=== PATIENT | male | born 1940 | race Caucasian/White ===

== ENCOUNTER 2019-03-04 06:25 | Observation (INO) | payer MEDICARE ==
--- NOTE | 2019-02-26 18:20 | HP ---
CC: Dr. Noel; Dr. Naik * ADMITTING HISTORY AND PHYSICAL: DATE OF ADMISSION/OPERATION: 03/04/19 ADMITTING DIAGNOSIS: Benign prostatic hypertrophy. PLANNED PROCEDURE: Transurethral resection of prostate. SURGEON: Dr. Jernigan. ADMITTING HISTORY AND PHYSICAL: Gareth Burdick is a 78-year-old gentleman with longstanding symptoms of benign prostatic hypertrophy. I had originally evaluated him in 2007 and he has been on medical therapy including most recently Cardura as well as Proscar; and, in spite of that, continues to have partial urinary retention and bothersome urinary symptoms and is now being brought in for a transurethral resection of prostate. PAST MEDICAL HISTORY: Significant for: 1. BPH. 2. History of atrial fibrillation (required 2 RF ablations, one in 2014 and one in 2018 and has been in sinus rhythm since the second one). 3. Glaucoma. PAST SURGICAL HISTORY: Significant for bilateral inguinal hernia repair and tonsillectomy and radiofrequency ablation. MEDICATIONS ON ADMISSION: 1. Proscar 5 mg daily. 2. Cardura 4 mg daily. 3. Eye drops for glaucoma. He had been on Xarelto up until recently, but after his most recent discussion with Dr. Naik, he stopped the Xarelto. ALLERGIES: No known drug allergies. FAMILY HISTORY: Negative for prostate or bladder cancer. SOCIAL HISTORY: Smoking history: He is a former smoker with a 15-pack year smoking history, who quit about 40 years ago. REVIEW OF SYSTEMS: He is otherwise in excellent health. There is no history of diabetes mellitus or any other major systemic illness. PHYSICAL EXAMINATION GENERAL: Reveals a pleasant elderly gentleman. VITAL SIGNS: Blood pressure is 110/70, pulse 80 per minute and regular, temperature 96.3, oxygen saturation 98% on room air. LUNGS: Clear bilaterally. CARDIOVASCULAR: Regular rate and rhythm. S1, S2. ABDOMEN: Soft without masses. DIAGNOSTIC STUDIES/LAB DATA: Urinalysis is negative. IMPRESSION: A 78-year-old gentleman with longstanding history of symptoms and partial retention secondary to prostate enlargement. PLANNED PROCEDURE: Transurethral resection of prostate. [id number] #: [id number] MTDD
[~2019-03-04 06:25] MED LIST: Buffered Lidocaine 1% SYRIN* 1 ML/SYRINGE INTRADERM ONE; Famotidine IV* 10 MG/ML 2 ML (20 mg) IV ONE
[2019-03-04] MEDS ORDERED: Famotidine IV* 10 MG/ML 2 ML (20 mg) ONE (07:00)
[2019-03-04] MEDS ORDERED: ceFAZolin 2 GM in NS PREMIX(*) 0 GM/0 ML BAG IVPB ONE (07:00)
[2019-03-04] MEDS: Lactated Ringers 1000 ML Bag* 1,000 ML IV SCH ×4 (07:36→21:00)
[2019-03-04] MEDS ORDERED: Lidocaine 2% PF * 5 ML VIAL ONE (08:14)
[2019-03-04] MEDS ORDERED: fentaNYL* 50 MCG/ML 2 ML VIAL (100 MCG VIAL) ONE (08:14)
[2019-03-04] MEDS ORDERED: Ondansetron INJ* 2 MG/ML VIAL ONE (08:14)
[2019-03-04] MEDS ORDERED: Propofol* 10 MG/ML 20 ML BTL ONE ×2 (08:14→10:43)
[2019-03-04] MEDS ORDERED: Dexamethasone IV* 4 MG/ML 1 ML (4 MG) ONE (08:14)
[2019-03-04] MEDS ORDERED: Midazolam* 1 MG/ML 5 ML VIAL (5 MG) ONE (08:14)
[2019-03-04] MEDS ORDERED: cefTRIAXone(*) 2 GM ADDV.VIAL IVPB ONE (09:24)
[2019-03-04] MEDS ORDERED: Furosemide IV* 10 MG/ML 2 ML VIAL (20 MG) ONE (10:17)
[2019-03-04] MEDS ORDERED: Naloxone* 0.4 MG/ML 1 ML VIAL IV PRN (11:58)
[2019-03-04] MEDS ORDERED: fentaNYL* 50 MCG/ML 2 ML VIAL (100 MCG VIAL) IV PRN (11:58)
[2019-03-04] MEDS ORDERED: Ondansetron INJ* 2 MG/ML VIAL IV PRN (11:58)
[2019-03-04] MEDS ORDERED: Cetirizine* 10 MG TAB PO PRN (14:06)
[2019-03-04] MEDS ORDERED: Folic Acid TAB* 1 MG PO SCH (18:00)
[2019-03-04] MEDS ORDERED: Latanoprost 0.005%* 2.5 ml BTL BOTH EYES SCH (18:00)
[2019-03-04] MEDS: Acetaminophen TAB* 325 MG PO PRN (20:38)
[2019-03-04] MEDS: Docusate CAP* 100 MG PO SCH (20:39)
[2019-03-04] MEDS ORDERED: Vitamin B Complex TAB PO SCH (21:00)
[2019-03-04] MEDS ORDERED: Ascorbic Acid TAB* 500 MG PO SCH (21:00)
[2019-03-04] MEDS ORDERED: Magnesium Oxide TAB* 400 MG PO SCH (21:00)
[2019-03-04] MEDS ORDERED: Vitamin THERAPEUTIC TAB PO SCH (21:00)
--- NOTE | 2019-03-04 23:24 | OP ---
CC: Lv Noel MD * DATE OF OPERATION: 03/04/19 - ROOM #348 DATE OF : 44 SURGEON: Ran Jernigan MD ANESTHESIOLOGIST: Dr. Chaidez ANESTHESIA: Spinal PRE-OP DIAGNOSES: 1. Benign prostatic hypertrophy 2. Partial urinary retention. POST-OP DIAGNOSES: 1. Benign prostatic hypertrophy 2. Partial urinary retention. OPERATIVE PROCEDURES: 1. Transurethral resection of prostate 2. Transurethral incision of bladder neck. COMPLICATIONS: None. BLOOD LOSS: 50 cc. SPECIMEN: Prostate chips. CATHETER: 24-Polish Levin. OPERATIVE FINDINGS: 1. Moderately large obstructing prostate. 2. Simple left ureterocele. POSTOPERATIVE CONDITION: Stable. INDICATIONS: Gareth Burdick is a 78-year-old gentleman with longstanding voiding symptoms secondary to prostate enlargement. He desires and is now being brought in for transurethral resection of prostate. DESCRIPTION OF PROCEDURE: After induction of spinal anesthesia, the patient was placed in dorsal lithotomy position. Sequential compression devices were in place and functioning. Initial cystoscopy revealed a normal-appearing urethra , a moderately enlarged obstructing prostate and a simple left ureterocele was noted. There was no evidence of any suspicious bladder lesion. Transurethral resection of prostate was carried out from the bladder neck down to the veru. The floor of the prostate and the median lobe was first resected followed by the lateral lobe tissue and an anterior tissue. At no point was the resection carried distal to the veru in an effort to avoid any potential injury to the sphincter. Using a right angle knife electrode, bladder neck incision was carried out at 5 , 7 and 12 o'clock position in an effort to minimize any potential chances of postoperative bladder neck contracture. The resected tissue was removed from the bladder using the Oneyda evacuator. Hemostasis appeared satisfactory at the end of the procedure and a 24-Polish Levin was placed without difficulty. The patient tolerated the procedure satisfactorily and was transferred back to the recovery area in stable condition. [id number]/[facility] #: [id number] [facility]
[2019-03-05] MEDS: Lactated Ringers 1000 ML Bag* 1,000 ML IV SCH (03:19)
[2019-03-05] MEDS: Acetaminophen TAB* 325 MG PO PRN (06:45)
[2019-03-05 07:30] VITALS: BP 131/75
[2019-03-05] MEDS ORDERED: cefTRIAXone(*) 2 GM in NS 0.9% 100 ML* 100 ML IVPB ONE (08:00)
[2019-03-05 08:01] LABS: Calcium 8.4 mg/dL (8.6-10.3); EGFR African American 195.6 (>60); EGFR Non-African American 161.7 (>60); Potassium 3.8 mmol/L (3.5-5.0)
[2019-03-05] MEDS ORDERED: Betaxolol 0.5 %* OPHTH.SOLN 5 ML BOTH EYES SCH (09:00)
[2019-03-05] MEDS ORDERED: Influenza VAC *QUAD* 2019-20* 0.5 ML SYRINGE IM ONE (09:00)
[2019-03-05] MEDS: Docusate CAP* 100 MG PO SCH (10:04)
--- NOTE | 2019-03-06 00:23 | DS ---
DISCHARGE SUMMARY: DATE OF ADMISSION: 03/04/19 DATE OF DISCHARGE: 03/05/19 ADMITTING DIAGNOSES: 1. Benign prostatic hypertrophy. 2. Partial urinary retention. SURGICAL PROCEDURES ON THIS ADMISSION: On 03/04/19, transurethral resection of prostate. HISTORY: Gareth Burdick is a 78-year-old gentleman with longstanding history of voiding symptoms secondary to prostate enlargement. For details, please see admitting history and physical. HOSPITAL COURSE: On 03/04/19, Mr. Burdick underwent transurethral resection of prostate under spinal anesthesia. Surgery was smooth and uneventful. He was observed overnight, and I checked him in the evening on 03/04/19, and then again in the morning on 03/05/19. His Levin catheter was draining well, and he was discharged home in stable condition for followup as per outpatient protocol. [id number]/[facility] #: [id number] MTDD
== END 2019-03-05 11:35 | disposition home or self-care (01) ==
LOC: OR 06:25 → SSU 13:59 → INTOOBSV 13:59
PROVIDERS: ADMIT Urology; ATTEND Urology
DX: N40.1 Benign prostatic hyperplasia with lower urinary tract symptoms (principal); R33.8 Other retention of urine; I48.91 Unspecified atrial fibrillation; H40.9 Unspecified glaucoma; Z87.891 Personal history of nicotine dependence
CPT/HCPCS: 36415; 80048; 88305; 90471; 90686; A9270-GY; G0008; G0378; J0690; J0696; J1100; J1940; J2250; J2405; J2704; J3010

== ENCOUNTER 2019-05-08 21:56 | Inpatient (IN) | payer MEDICARE ==
--- NOTE | 2019-05-08 22:23 | ED ---
Altered Mental Status - HPI Summary HPI Summary: Pt is a 78 y/o M presenting to the ED brought in by EMS for a possible head injury. LEVEL 5 CAVEAT: Pts full hx and physical is limited d/t AMS. Per pts daughter, pts called her at 2100 saying that she found him outside on the ground, looking like he had fallen. He did not remember who his was, where he was, or who anyone else was. Provider saw pt at 22:10. He is on Aspirin, no other blood thinners. Per pt's , he sees Dr. Naik. He recently had a procedure for which he was taken off of his Xarelto, but his is unsure if he began taking it again or not. - History Of Current Complaint Chief Complaint: EDHeadInjury Stated Complaint: AMS PER EMS Time Seen by Provider: 05/08/19 22:08 Hx Obtained From: Family/Professor Of Rhetoric - dtr Onset/Duration: Unknown, Still Present Timing: Intermittent, Lasting Hours Severity Initially: Moderate Severity Currently: Moderate Character: Confusion Aggravating Factor(s): Unknown Alleviating Factor(s): Nothing Associated Signs And Symptoms: Positive: Recent Trauma - Allergies/Home Medications Allergies/Adverse Reactions: Allergies Allergy/AdvReac Type Severity Reaction Status Date / Time No Known Allergies Allergy Verified 03/04/19 07:18 Home Medications: Home Medications Aspirin EC TAB* [Ecotrin EC Low Dose 81 MG*] 81 mg PO QAM 05/08/19 [History Confirmed 05/08/19] PMH/Surg Hx/FS Hx/Imm Hx Previously Healthy: No Endocrine/Hematology History: Reports: Hx Anticoagulant Therapy - aspirin, xarelto, unk if on xarelto currently Denies: Hx Diabetes Cardiovascular History: Reports: Hx Atrial Fibrillation Denies: Hx Hypertension, Hx Pacemaker/ICD Respiratory History: Reports: Hx Asthma - A TEENAGER, Hx Sleep Apnea - CPAP user, compliance issues History: Reports: Other Problems/Disorders - ENLARGED PROSTATE Denies: Hx Dialysis, Hx Renal Disease Musculoskeletal History: Reports: Hx Arthritis - BILATERAL HANDS MORE ON RIGHT Sensory History: Reports: Hx Cataracts, Hx Contacts or Glasses - READERS, Hx Glaucoma Denies: Hx Hearing Aid Opthamlomology History: Reports: Hx Cataracts, Hx Contacts or Glasses - READERS , Hx Glaucoma Psychiatric History: Denies: Hx Panic Disorder - Surgical History Surgery Procedure, Year, and Place: HERNIA, , CATARACTS,. 2 ABLATIONS Hx Anesthesia Reactions: Yes - WITH ABALTION DIFFICULT TIME COMING OUT OF ANESTHESIA . Infectious Disease History: No Infectious Disease History: Denies: Traveled Outside the [place] in Last 30 Days - Family History Known Family History: Positive: Other Family History: LEVEL 5 CAVEAT: Pts full hx and physical is limited d/t AMS. - Social History Alcohol Use: Occasionally Substance Use Type: Reports: None Smoking Status (MU): Former Smoker Have You Smoked in the Last Year: No Review of Systems - ROS Summary Review of Systems Summary: Home Medications Medication Instructions Recorded Confirmed Type Aspirin [Aspirin 81] 81 mg PO QPM 07/30/13 03/04/19 History Betaxolol 0.5 %* [Betoptic 0.5%*] 1 drop BOTH EYES QAM 07/30/13 03/04/19 History Doxazosin Mesylate [Cardura] 4 tab PO QPM 07/30/13 03/04/19 History Latanoprost 0.005%* [Xalatan 1 drop BOTH EYES QPM 08/30/16 03/04/19 History 0.005%*] Ascorbic Acid [Vitamin C] 1,000 mg PO QPM 02/27/19 03/04/19 History Fexofenadine (NF) [Lady (NF)] 60 mg PO QPM PRN 02/27/19 03/04/19 History Finasteride [Proscar] 5 mg PO QPM 02/27/19 03/04/19 History Folic Acid TAB* [Folvite TAB*] 1 mg PO QPM 02/27/19 03/04/19 History Magnesium Oxide [Magnesium] 250 mg PO QPM 02/27/19 03/04/19 History Multivitamin [Multivitamins] 1 cap PO QPM 02/27/19 03/04/19 History Vitamin B Complex [Ultra B-100 1 each PO QPM 02/27/19 03/04/19 History Complex] Positive: Bruising - L hand Neurological: Other - confusion All Other Systems Reviewed And Are Negative: No Physical Exam - Summary Physical Exam Summary: LEVEL 5 CAVEAT: Pts full hx and physical is limited d/t AMS. General: Well-developed, Well-nourished male. No acute distress. HEENT: Normocephalic, Atraumatic. Eyes: Conjuctiva normal, PERRL. Oropharynx: Clear, mucous membranes moist, (-) exudates. Neck: Soft, FROM, (-) lymphadenopathy, (-) thyromegaly, (-) JVD. Cardiovascular: Normal sinus rhythm, (-) murmur. Lungs: Clear to auscultation bilaterally (-) wheezes, (-) rales, (-) rhonchi. Abdomen: Soft, non-tender, non-distended, (-) organomegaly, normal bowel sounds. Back: (-) CVA tenderness Extremities: No edema. Skin: Warm, dry, (-) rash. Ecchymosis on L hand. Superficial abrasions on R fingers and hand. Neuro: Awake and alert. Not oriented to anything. Psychiatric: Mood normal, affect normal. Triage Information Reviewed: Yes Vital Signs On Initial Exam: Initial Vitals Temp Pulse Resp BP Pulse Ox 98.3 F 83 14 163/92 100 05/08/19 22:07 05/08/19 22:07 05/08/19 22:07 05/08/19 22:07 05/08/19 22:07 Vital Signs Reviewed: Yes Completion Of Physical Exam Limited Due To: Level 5 - [place] Coma Scale Best Eye Response: 4 - Spontaneous Best Motor Response: 6 - Obeys Commands Best Verbal Response: 4 - Confused Coma Scale Total: 14 Procedures - Sedation Patient Received Moderate/Deep Sedation with Procedure: No Diagnostics - Vital Signs Vital Signs Temp Pulse Resp BP Pulse Ox 05/08/19 22:07 98.3 F 83 14 163/92 100 - Laboratory Result Diagrams: 05/09/19 05:10 05/08/19 22:34 Lab Statement: Any lab studies that have been ordered have been reviewed, and results considered in the medical decision making process. - CT Brain CT CT Interpretation Completed By: Radiologist Summary of CT Findings: 1. There is acute subdural blood overlying the left frontal and temporal lobes greatest thickness laterally 9 mm with additional smaller subdural collections overlying both frontal lobes and subdural blood layering along the tentorium more pronounced on the left than the right as well as limited subdural blood along the falx.. There is mild midline shift left to right of 5 mm level of the lateral ventricles. 2. There may be additional hemorrhagic contusion in the posterior aspect of the left temporal lobe involving a 2.1 cm area. 3. Minimal sinus disease. ED physician has reviewed this report. CT C-spine CT Interpretation Completed By: Radiologist Summary of CT Findings: 1. No cervical fracture or subluxation. 2. Limited fluid in the sinuses. ED physician has reviewed this report. CT Chest/Abd/Pelv CT Interpretation Completed By: Radiologist Summary of CT Findings: 1. Hepatic cysts. 2. Splenic cysts. 3. Small hiatus hernia. 4. Status post TURP procedure. 5. Compression fracture deformity of T12, probably old. 6. Multilevel degenerative disc disease. 7. Linear atelectasis or fibrosis in the right lower lobe. ED physician has reviewed this report. - EKG 2231 Cardiac Rate: NL - 82bpm EKG Rhythm: Sinus Rhythm ST Segment: Normal Ectopy: None Summary of EKG Findings: EKG at 2231 reveals normal sinus rhythm with rate of 82 BPM, no acute changes, no ischemic changes. This EKG was reviewed and interpreted by Dr. Chatterjee. Re-Evaluation - Re-Evaluation 1st re-eval Re-Evaluation Time: 22:50 Change: Unchanged Comment: Pt's states the driveway was very icy, which is a possible cause of why he slipped. She also states he has not filled his Xarelto Rx in many months, as he still has about 1/2 bottle left in his cabinet. Altered Mental Statu Course/Dx - Course Course Of Treatment: 78 y/o M presents by EMS after being found on ground by his . Presumed fall d/t ice. Pt amnestic on arrival, unable to give his name or . Unsure of location or time. Moving all extremities well. No obvious weakness or tingling/numbness. Superficial abrasions on hands. CT head demonstrates large subdural hematoma on the L w/ 5mm midline shift. Neurosurgery consulted and pt seen. Keppra given to pt to prevent seizures. Pt referred to hospitalist for ICU admission. - Diagnoses Provider Diagnoses: Subdural hematoma - Critical Care Time Critical Care Time: 30-74 min - 72min Discharge ED - Sign-Out/Discharge Documenting (check all that apply): Patient Departure - Discharge Plan Condition: Stable Disposition: ADMITTED TO [facility] - Billing Disposition and Condition Condition: STABLE Disposition: Admitted to [facility] - Attestation Statements Document Initiated by Scribe: Yes Documenting Scribe: Sarah Collado Provider For Whom Scribe is Documenting (Include Credential): Sanjuanita Chatterjee MD. Scribe Attestation: I, Sarah Collado, scribed for Sanjuanita Chatterjee MD. on 05/09/19 at 0608. Scribe Documentation Reviewed: Yes Provider Attestation: The documentation as recorded by the scribe, Sarah Collado accurately reflects the service I personally performed and the decisions made by me, Sanjuanita Chatterjee MD. Status of Scribe Document: Viewed Consult Consult: I spoke with Dr. Parnell at 22:42 about the pt's present condition who recommends trauma CTs and an INR. 1105 - Dr. Parnell also recommends the pt be placed on Keppra for seizure prophylaxis. He does not think pt will need surgery, instead thinks pt may need ICU. 0003 - Spoke with Dr. Stone who will evaluate pt for admission.
[2019-05-08 22:53] LABS: ABS Eosinophils 0.1 10^3/ul (0-0.6); ABS Lymphocytes 1.4 10^3/ul (1.0-4.8); ABS Monocytes 0.6 10^3/ul (0-0.8); Eosinophil % 2.8 %; Hematocrit 38 % (42-52); Hemoglobin 13.1 g/dL (14.0-18.0); Lymphocyte % 26.3 %; Mean Corpuscular HGB Conc 35 g/dL (31-36); Mean Corpuscular Hemoglobin 33 pg (27-31); Mean Corpuscular Volume 96 fL (80-94); Nucleated Red Blood Cells % 0.1; Platelet Count 263 10^3/uL (150-450); Red Blood Count 3.92 10^6 /uL (4.18-5.48); Red Cell Distribution Width 13 % (10-15); White Blood Count 5.1 10^3/uL (3.5-10.8)
[2019-05-08] MEDS ORDERED: levETIRAcetam 1000MG IVPREMIX* 1,000 MG/100 ML BAG IVPB ONE (23:07)
[2019-05-08] MEDS ORDERED: Iodixanol* (CONTRAST) 320 MG/ML 100 ML SDV IV ONE (23:12)
[2019-05-08 23:17] LABS: Albumin 4.2 g/dL (3.2-5.2); Albumin/Globulin Ratio 1.5 (1-3); BUN/Creatinine Ratio 21.1 (8-20); Calcium 8.6 mg/dL (8.6-10.3); EGFR African American 168.2 (>60); Globulin 2.8 g/dL (2-4); Potassium 3.6 mmol/L (3.5-5.0); Total Bilirubin 0.4 mg/dL (0.2-1.0)
[2019-05-09] MEDS ORDERED: fentaNYL* 50 MCG/ML 2 ML VIAL (100 MCG VIAL) IV SLOW PU ONE (00:48)
[2019-05-09] MEDS ORDERED: Ondansetron INJ* 2 MG/ML VIAL IV PRN (01:20)
[2019-05-09] MEDS ORDERED: fentaNYL* 50 MCG/ML 2 ML VIAL (100 MCG VIAL) IV SLOW PU PRN (01:22)
[2019-05-09] MEDS ORDERED: NS 0.9% 1000 ML** 1,000 ML IV SCH (01:30)
[2019-05-09 03:15] LABS: Urine Appearance Clear; Urine Bilirubin Negative (Negative); Urine Blood 1+ (Negative); Urine Color Yellow; Urine Glucose Negative (Negative); Urine Ketones 1+ (Negative); Urine Nitrite Negative (Negative); Urine Protein Negative (Negative); Urine Specific Gravity 1.027 (1.010-1.030); Urine Urobilinogen Negative (Negative)
[2019-05-09 03:17] LABS: Urine Bacteria Absent (Absent); Urine Red Blood Cell 1+(3-5/hpf) (Absent); Urine White Blood Cell Trace(0-5/hpf) (Absent)
[2019-05-09 05:28] LABS: ABS Lymphocytes 0.9 10^3/ul (1.0-4.8); ABS Monocytes 0.5 10^3/ul (0-0.8); ABS Neutrophils 7.3 10^3/ul (1.5-7.7); Hematocrit 39 % (42-52); Hemoglobin 13.5 g/dL (14.0-18.0); Lymphocyte % 10.1 %; Mean Corpuscular HGB Conc 35 g/dL (31-36); Mean Corpuscular Hemoglobin 33 pg (27-31); Mean Corpuscular Volume 96 fL (80-94); Mean Platelet Volume 7.2 fL (7.4-10.4); Platelet Count 260 10^3/uL (150-450); Red Blood Count 4.07 10^6 /uL (4.18-5.48); Red Cell Distribution Width 13 % (10-15); White Blood Count 8.7 10^3/uL (3.5-10.8)
[2019-05-09 05:32] LABS: INR 1.02 (0.82-1.09)
--- NOTE | 2019-05-09 05:55 | ADMNOTE ---
Subjective Interval History: H&P 78 yo male iwth hx of atrial fibrillation not on AC, was found down by his car outside, appeared to have fallen. He did not recognize his family and was very confused. He was not able to give any history. AMS brought him to the ER where he had a stat CT head done which showed a subdural hematoma with a hemorrhagic contusion. Neurosurgery was consulted, no acute intervention now but he recommends admission to ICU for frequent neuro checks. Currently patient's only neurological deficit is aphasia. Family History: Unchanged from Admission Social History: Unchanged from Admission Past Medical History: Unchanged from Admission Review of Systems - Measurements Intake and Output: Intake and Output Last 24 Hours 05/06/19 05/07/19 05/08/19 05/09/19 06:59 06:59 06:59 06:59 Intake Total 100 Output Total 650 Balance -550 Weight 69 lb 4.8 oz Intake: IV Fluids 100 Oral 0 Output: Urine 650 - Review of Systems General Comments: not able to be obtained Objective Active Medications: Fentanyl Citrate (Fentanyl*) 25 mcg IV SLOW PU Q4H PRN PRN Reason: PAIN - SEVERE Levetiracetam (Keppra Iv Premix*) 500 mg in 100 mls @ 400 mls/hr IV Q12H [facility] Sodium Chloride (Ns 0.9% 1000 Ml) 1,000 mls @ 50 mls/hr IV PER RATE [facility] Last Admin: 05/09/19 03:00 Dose: 50 mls/hr Ondansetron HCl (Zofran Inj*) 4 mg IV Q8H PRN PRN Reason: NAUSEA Vital Signs - 8 hr 05/08/19 05/08/19 05/08/19 22:04 22:05 22:07 Temperature 98.3 F Pulse Rate 83 87 83 Respiratory 14 Rate Blood Pressure 163/92 163/92 (mmHg) O2 Sat by Pulse 99 99 100 Oximetry 05/08/19 05/08/19 05/08/19 22:23 22:45 22:47 Temperature Pulse Rate 84 80 78 Respiratory 12 12 17 Rate Blood Pressure 163/99 152/94 148/90 (mmHg) O2 Sat by Pulse 98 99 96 Oximetry 05/08/19 05/08/19 05/08/19 23:38 23:43 23:53 Temperature Pulse Rate 88 84 87 Respiratory 17 9 22 Rate Blood Pressure 155/89 162/91 (mmHg) O2 Sat by Pulse 100 100 98 Oximetry 05/09/19 05/09/19 05/09/19 00:00 00:08 00:23 Temperature Pulse Rate 87 88 86 Respiratory 9 19 12 Rate Blood Pressure 163/92 161/96 (mmHg) O2 Sat by Pulse 99 99 98 Oximetry 05/09/19 05/09/19 05/09/19 00:38 00:50 00:53 Temperature Pulse Rate 83 83 Respiratory 9 14 19 Rate Blood Pressure 161/94 159/93 (mmHg) O2 Sat by Pulse 100 97 Oximetry 05/09/19 05/09/19 05/09/19 00:58 01:00 01:08 Temperature Pulse Rate 80 79 Respiratory 14 20 23 Rate Blood Pressure 157/90 (mmHg) O2 Sat by Pulse 100 99 Oximetry 05/09/19 05/09/19 05/09/19 01:23 01:27 01:38 Temperature Pulse Rate 75 75 Respiratory 17 12 16 Rate Blood Pressure 152/85 158/92 (mmHg) O2 Sat by Pulse 100 100 Oximetry 05/09/19 05/09/19 05/09/19 01:41 01:42 01:56 Temperature 99.8 F 98.7 F Pulse Rate 74 80 83 Respiratory 16 24 15 Rate Blood Pressure 158/92 141/77 156/89 (mmHg) O2 Sat by Pulse 100 97 100 Oximetry 05/09/19 05/09/19 05/09/19 02:00 02:15 02:30 Temperature Pulse Rate 87 83 86 Respiratory 17 19 16 Rate Blood Pressure 155/89 155/80 141/72 (mmHg) O2 Sat by Pulse 98 98 100 Oximetry 05/09/19 05/09/19 05/09/19 02:45 03:00 03:15 Temperature Pulse Rate 78 82 81 Respiratory 22 19 18 Rate Blood Pressure 135/75 144/73 141/77 (mmHg) O2 Sat by Pulse 98 99 99 Oximetry 05/09/19 05/09/19 05/09/19 03:30 03:45 04:00 Temperature 97.8 F Pulse Rate 85 103 82 Respiratory 21 17 Rate Blood Pressure 137/72 155/88 147/68 (mmHg) O2 Sat by Pulse 99 98 99 Oximetry 05/09/19 05/09/19 05/09/19 04:15 04:30 04:45 Temperature Pulse Rate 79 83 83 Respiratory 17 18 17 Rate Blood Pressure 146/78 144/79 146/79 (mmHg) O2 Sat by Pulse 99 97 100 Oximetry 05/09/19 05/09/19 05:00 05:01 Temperature Pulse Rate 92 95 Respiratory 25 24 Rate Blood Pressure 148/74 (mmHg) O2 Sat by Pulse 99 100 Oximetry Oxygen Devices in Use Now: None Appearance: awake, confused Eyes: No Scleral Icterus, PERRLA Ears/Nose/Mouth/Throat: NL Teeth, Lips, Gums, Mucous Membranes Moist Neck: NL Appearance and Movements; NL JVP, Trachea Midline, No Thyroid Enlargement, Masses Respiratory: Symmetrical Chest Expansion and Respiratory Effort, Clear to Auscultation, Clear to Percussion Cardiovascular: NL Sounds; No Murmurs; No JVD, No Edema Abdominal: NL Sounds; No Tenderness; No Distention, No Hepatosplenomegaly Skin: No Rash or Ulcers, No Nodules or Sclerosis Neurological: - - alert, moving all EXTs spontaneously. Result Diagrams: 05/09/19 05:10 05/08/19 22:34 Microbiology and Other Data: Microbiology 05/09/19 02:00 Nasal Screen MRSA (PCR) - Final Nasal Mrsa Not Detected Assess/Plan/Problems-Billing Assessment: - Patient Problems (1) Head trauma Current Visit: Yes Status: Acute Code(s): S09.90XA - UNSPECIFIED INJURY OF HEAD, INITIAL ENCOUNTER SNOMED Code(s): 23287107 Comment: had an unwitnessed fall. Now patient is confused with aphasia. CT head showed subdural hematoma with hemorrhagic contusion. neurosurgery consulted, recommended no intervention for now. Pt to be kept NPO, with 50cc/hr, on bed rest neuro checks Q1H keppra for prophylaxis zofran for nausea fentanyl for [place] repeat CT head this am (2) Atrial fibrillation Current Visit: Yes Status: Acute Code(s): I48.91 - UNSPECIFIED ATRIAL FIBRILLATION SNOMED Code(s): 51020332 (3) DVT prophylaxis Current Visit: Yes Status: Acute Code(s): Z29.9 - ENCOUNTER FOR PROPHYLACTIC MEASURES, UNSPECIFIED SNOMED Code(s): 936111424 Comment: contraindicated (4) Full code status Current Visit: Yes Status: Acute Code(s): Z78.9 - OTHER SPECIFIED HEALTH STATUS SNOMED Code(s): 891528891
[2019-05-09 06:37] LABS: Calcium 8.4 mg/dL (8.6-10.3); Potassium 4.1 mmol/L (3.5-5.0)
[2019-05-09 06:43] LABS: BUN/Creatinine Ratio 17.6 (8-20); EGFR African American 191.2 (>60)
[2019-05-09] MEDS ORDERED: Sodium Chloride 3% HYPERTONIC* 500 ML IV ONE ×2 (08:00→10:04)
--- NOTE | 2019-05-09 09:24 | CONS ---
CONSULTATION NOTE: DATE OF CONSULT: 05/09/19 HISTORY OF PRESENT ILLNESS: The patient is a very pleasant 78-year-old right- handed gentleman with a history of AFib, who was previously on Xarelto, who was reported to be found by his out in the driveway, with face down after a presumed fall. Requested to see the patient by emergency room physician regarding CT scan findings consistent with small left temporal and frontal subdural hematoma with a small left temporal contusion, small bifrontal subdural hematomas, and a small tentorial and interhemispheric subdural hematoma. The patient was reported to be found by his . At that time he was confused, but he was able to return back home and ambulate. The patient had no focal weakness, but he was not able to remember what happened. His contacted his daughter and the patient was brought to the emergency room by EMS. The patient denies any pain. The patient prior to this incident was living independently with his . The patient is a recently retired [employer] in [employer]. He is , lives with his , who accompanies him at the bedside and they have 3 children. His daughter also is at the bedside. The patient has not been taking his Xarelto since October as his reports. PAST MEDICAL HISTORY: The patient has a history of atrial fibrillation, asthma , sleep apnea, BPH, arthritis, cataract. PAST SURGICAL HISTORY: The patient has a history of hernia repair, cataract surgery, heart ablations, prostate surgery. HOME MEDICATIONS: The patient was on 81 mg of aspirin per day. ALLERGIES: No known drug allergies. FAMILY HISTORY: Unknown. SOCIAL HISTORY: Tobacco negative. Alcohol occasionally. The patient shares a beer everyday with his . Recreational drug use negative. PHYSICAL EXAM: The patient is not in acute distress. He is awake, alert. He is oriented x1, to himself. His pupils are equal and reactive. Cranial nerves II through XII are grossly intact. Motor 4-5/5 in all extremities. No pronator drift. Sensory grossly intact to light touch, although due to the patient's mental status, exam is somewhat limited. Deep tendon reflexes +1 bilaterally. No clonus, no Babinski. Rand is negative. Straight-leg raise is negative in the supine position. The patient has no tenderness to palpation in the cervical, thoracic, or lumbar spine. He has free range of motion of the cervical spine. DIAGNOSTIC STUDIES/LAB DATA: The patient had a CT scan of the brain revealing a very small left frontal temporal subdural hematoma approximately 7 to 9 mm in the greatest diameter with a small right frontal subdural hematoma. There is also minimal interhemispheric subdural hematoma and left more than right tentorial subdural hematoma. The patient has also a posterior left temporal contusion and minimal midline shift to my measurement is approximately 2 to 3 mm. The patient had a CT scan of the cervical spine that did not reveal any fractures or subluxation. The patient had also a CT scan of the chest, abdomen, and pelvis with thoracic spine with a possible small Schmorl's at T12 with no evidence of fractures of the lumbar spine on my review, official reading is pending. ASSESSMENT: The patient is a very pleasant 78-year-old gentleman, who was reported to have sustained a fall and has CT scan findings consistent with minimal left subdural hematoma, and left temporal contusion. PLAN: The patient is currently doing quite well. He has aphasia as expected from his injury in his temporal lobe. There is no significant mass effect due to the subdural hematoma, and for this reason, I think that conservative therapy will be the best first approach. The patient will be kindly admitted to the ICU with seizure prophylaxis. Would recommend: Vital signs and neuro checks q.1 hour. Bed rest and head of the bed at [address] scan in 6 hours and monitor electrolytes. Discussed with the patient's and daughter regarding the patient's imaging and status with possible need for surgical intervention in the future versus monitoring with serial imaging. The patient's family understands. Discussed the possibility of worsening of the condition and need for surgical intervention and also possible poor outcome. The patient will be currently admitted to the ICU by the hospitalist team. The patient's family was considering transfer to a tertiary center. Thank you very much for allowing us to participate in the care of this patient. Please do not hesitate to contact our office in case you have any further questions or concerns regarding the care of this patient. [id number]/CPS #: [id number]
--- NOTE | 2019-05-09 10:03 | DS ---
Please see Dr. Stone's admission note from 4 hours ago. 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 Platelets adequate, INR normal. Hyponatremic. Drowsy but follows commands and gross motor intact. Systolic goal 110-140. Osmotherapy with 3% Transfer to [facility], no NS services available after 3PM [facility]. Family expresses [facility] closest [facility] where they feel comfortable transferring. I have communicated with Dr. Star Bazan, Neurosurgery at [facility] and he has kindly accepted patient in transfer.
[2019-05-09] MEDS ORDERED: niCARdipine 0.1MG/ML IVPREMIX* 20 MG/200 ML BAG IV SCH (11:00)
[2019-05-09] MEDS ORDERED: Morphine 4 MG/ML VIAL (1 ml) 4 MG/ML VIAL IV ONE (11:38)
[2019-05-09] MEDS ORDERED: Ondansetron INJ* 2 MG/ML VIAL IV ONE (11:39)
[2019-05-09] MEDS ORDERED: Morphine INJ* 2 MG/ML 1 ML SYRINGE (TWO MG - NEW SYRINGE VERSION) ONE (11:40)
[2019-05-09] MEDS ORDERED: levETIRAcetam 500 MG IVPREMIX* 500 MG/100 ML BAG IV SCH (12:00)
[2019-05-09] MEDS ORDERED: Morphine INJ* 2 MG/ML 1 ML SYRINGE (TWO MG - NEW SYRINGE VERSION) IV ONE (12:00)
[2019-05-09 12:30] VITALS: BP 137/72
--- NOTE | 2019-05-09 18:17 | PN ---
Progress Note - Progress Note Date of Service: 05/09/19 SOAP: Subjective: []Patient was seen earlier in am. In ICU. No events ON. Objective: []VSS AAOx1, TUNG, CN II-XII grossly intact. Motor 5/5 all extremities Sensory grossly intact to light touch. Assessment: []78 upm HD#1 fall, CHI Plan: []CT revealed stable SDH, evolution of L temporal contusion. Per family wishes patient transferred to [place] today. Discussed in extend with patient's . Appreciate ICU care. Yoselyn Castillo MD
== END 2019-05-09 11:50 | disposition short-term general hospital (02) | DRG 86 ==
LOC: ED 21:56 → ICU 05-09 01:17
PROVIDERS: ADMIT Student in an Organized Health Care Education/Training Program; ATTEND Internal Medicine Critical Care Medicine
DX: S06.5X0A Traumatic subdural hemorrhage without loss of consciousness, initial encounter (principal); E87.1 Hypo-osmolality and hyponatremia; R47.01 Aphasia; W19.XXXA Unspecified fall, initial encounter; J45.909 Unspecified asthma, uncomplicated; G47.30 Sleep apnea, unspecified; M19.042 Primary osteoarthritis, left hand; M19.041 Primary osteoarthritis, right hand; H40.9 Unspecified glaucoma; R40.2362 Coma scale, best motor response, obeys commands, at arrival to emergency department; R40.2142 Coma scale, eyes open, spontaneous, at arrival to emergency department; R40.2242 Coma scale, best verbal response, confused conversation, at arrival to emergency department; S06.360A Traumatic hemorrhage of cerebrum, unspecified, without loss of consciousness, initial encounter; S06.2X0A Diffuse traumatic brain injury without loss of consciousness, initial encounter; N40.0 Benign prostatic hyperplasia without lower urinary tract symptoms; Y92.9 Unspecified place or not applicable; Z87.891 Personal history of nicotine dependence
CPT/HCPCS: 36415; 70450; 71260; 72125; 74177; 80048; 80053; 81003; 81015; 83605; 84300; 85025; 85610; 86850; 86900; 86901; 87086; 87641; 93005; 99285; J1953; J2270; J2405; J3010; Q9967